=== PATIENT | female | born 1985 | race Caucasian/White ===

== ENCOUNTER 2018-08-16 10:41 | Emergency (ER) | payer MEDICAID ==
[~2018-08-16] VITALS: Ht 162.6 cm; Wt 68.3 kg
[2018-08-16 10:58] VITALS: BP 113/72
[2018-08-16 11:11] LABS: MICROSCOPIC NOT IND
--- NOTE | 2018-08-16 11:14 | NUR ---
PRESENTS FOR 3 DAY HX OF DYSURIA/LOWER ABD CRAMPING/MINIMAL VAGINAL DISCHARGE W/OUT FEVER. TOLD BY NEW PARTNER TESTED + FOR CHLAMYDIA THIS MORNING. PRESENTS FOR TX. URINE IN LAB FROM TRIAGE
[2018-08-16 11:18] LABS: CULTURE INDICATED? NO
[2018-08-16] MEDS ORDERED: AZITHROMYCIN 500 MG TABLET ONE (11:29)
[2018-08-16] MEDS ORDERED: CEFTRIAXONE 250 MG ONE (11:29)
[2018-08-16] MEDS ORDERED: LIDOCAINE-MPF 1%, 2ML ONE (11:29)
[2018-08-16] MEDS ORDERED: CEFTRIAXONE 250 MG IM ONE (11:30)
[2018-08-16] MEDS ORDERED: AZITHROMYCIN 250 MG TABLET PO ONE (11:30)
[2018-08-16 11:45] LABS: HCG UR SG 1.005 (1.003-1.030)
[2018-08-16] MEDS ORDERED: LIDOCAINE 1%, 2ML INFIL ONE (12:00)
--- NOTE | 2018-08-16 12:00 | NUR ---
reports no sxs after abx admin. drinking po fluids w/out trouble. reviewed plan/what to watch for. vss discharged to home
== END 2018-08-16 12:27 | disposition home or self-care (01) ==
LOC: ED 12:24
DX: R30.0 Dysuria (principal)
CPT/HCPCS: 81003; 81025; 87491; 87591; 96372; 99283; J0696; J3490